=== PATIENT | female | born 1965 | race Caucasian/White ===

== ENCOUNTER 2018-07-12 14:36 | Emergency (ER) | payer BC, OTHER ==
[2018-07-12] MEDS ORDERED: Ondansetron 4 MG/2 ML SDV IVPUSH ONE (15:23)
[2018-07-12] MEDS ORDERED: Sodium Chloride 0.9% 10 ML Syringe FLUSH PRN (15:23)
[2018-07-12] MEDS ORDERED: Alum Hydrox/Mag Hydrox/Simeth 30 ML, Lidocaine 2% 15 ML PO ONE ×2 (15:23)
--- NOTE | 2018-07-12 15:29 | EDM.PDOC ---
ED HPI GENERAL MEDICAL PROBLEM - General Chief Complaint: Chest Pain Stated Complaint: ABD PAIN/CHEST PAIN Time Seen by Provider: 07/12/18 15:07 Source of Information: Reports: Patient History Limitations: Reports: No Limitations - History of Present Illness INITIAL COMMENTS - FREE TEXT/NARRATIVE: Patient is a 52-year-old female with a history of GERD who states for the last week or so symptoms have been on and off more frequent than normal. As of today the symptoms have been constant worsen with eating and drinking. Pain is localized to epigastric region consistent with previous episodes. She is taking Nexium 40 mg every day with no other GI meds. She has stopped drinking caffeine. She has refrained from any spicy foods or chocolates. She does have history of hiatal hernia and states with laying flat the GERD does relief. Pain is localized rated a 6 out of 10 described as sharp in nature. She denies any dark tarry stools or bloody stools. She has no history of upper GI bleed. Denies any fever. She is mildly nauseated with no emesis. No history of pancreatitis. Denies any dysuria. Last bowel movement was is a.m. soft with no straining required. She's had a EGD and colonoscopy in the past 2012 with no concerning findings. Her gallbladder is removed. She denies any alcohol use and does not smoke. She has no history of coronary disease, hypertension, diabetes, hypercholesteremia. She states her mom was diagnosed with heart disease at 55 required stent placement. She does have a history of hypothyroidism and is currently on no medications since she does not tolerate them well. 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: nexium Chest Pain Score (Numeric/FACES): 6 - Related Data Allergies Allergy/AdvReac Type Severity Reaction Status Date / Time codeine Allergy Syncope Verified 07/12/18 14:49 Sulfa (Sulfonamide Allergy Rash Verified 07/12/18 14:49 Antibiotics) Home Meds: Home Meds Biotin 1,000 mcg PO DAILY 07/12/18 [History] Cholecalciferol (Vitamin D3) [Vitamin D] 5,000 unit PO DAILY 07/12/18 [History] Chromium Picolinate 600 mcg PO DAILY 07/12/18 [History] Docusate Sodium [Colace] 100 mg PO DAILY 07/12/18 [History] Esomeprazole [NexIUM] 40 mg PO DAILY 07/12/18 [History] Fluticasone Propionate [Flonase] 16 gm NS DAILY 07/12/18 [History] Fluticasone/Salmeterol [Advair 500-50] 1 puff INH DAILY 07/12/18 [History] Sucralfate [Carafate] 1 gm PO QID #28 tablet 07/12/18 [Rx] Zafirlukast [Accolate] 20 mg PO DAILY 07/12/18 [History] Past Medical History HEENT History: Reports: Impaired Vision Other HEENT History: wears corrective lenses Gastrointestinal History: Reports: GERD 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 ED EXAM, GI/ABD - Physical Exam Exam: See Below Exam Limited By: No Limitations General Appearance: Alert, WD/WN, No Apparent Distress Ears: Hearing Grossly Normal Nose: Normal Inspection Throat/Mouth: Normal Voice, No Airway Compromise Head: Atraumatic, Normocephalic Neck: Normal Inspection, Supple Respiratory/Chest: No Respiratory Distress, Lungs Clear, Normal Breath Sounds, No Accessory Muscle Use, Chest Non-Tender Cardiovascular: Normal Peripheral Pulses, Regular Rate, Rhythm, No Murmur GI/Abdominal Exam: Normal Bowel Sounds, Soft, No Organomegaly, No Distention, Tender (epigastric region/luq) Back Exam: Normal Inspection. No: CVA Tenderness (L), CVA Tenderness (R) Extremities: Normal Inspection, Non-Tender, No Pedal Edema, Normal Capillary Refill Neurological: Alert, Oriented, CN II-XII Intact, Normal Cognition Psychiatric: Normal Affect, Normal Mood Skin Exam: Warm, Dry, Intact, Normal Color, No Rash Course - Vital Signs Last Recorded V/S: Last Vital Signs Temp 97.9 F 07/12/18 14:45 Pulse 98 07/12/18 14:45 Resp 18 07/12/18 14:45 BP 114/82 07/12/18 14:45 Pulse Ox 99 07/12/18 14:45 - Orders/Labs/Meds Orders: Active Orders 24 hr Category Date Time Status Peripheral IV Care [RC] . DIRECTED Care 07/12/18 15:23 Active CULTURE URINE [RM] Stat Lab 07/12/18 15:35 Results Peripheral IV Insertion Adult [OM.PC] Routine Oth 07/12/18 15:23 Ordered Labs: Laboratory Tests 07/12/18 07/12/18 07/12/18 Range/Units 15:35 15:45 15:45 WBC 6.38 (3.98-10.04) K/mm3 RBC 5.15 (3.98-5.22) M/mm3 Hgb 14.7 (11.2-15.7) gm/L Hct 43.2 (34.1-44.9) % MCV 83.9 (79.4-94.8) fl MCH 28.5 (25.6-32.2) pg MCHC 34.0 (32.2-35.5) g/dl RDW Std Deviation 40.3 (36.4-46.3) fL Plt Count 255 (182-369) K/mm3 MPV 9.6 (9.4-12.3) fl Neutrophils % (Manual) 88 H (40-60) % Band Neutrophils % 0 (0-10) % Lymphocytes % (Manual) 7 L (20-40) % Atypical Lymphs % 0 % Monocytes % (Manual) 4 (2-10) % Eosinophils % (Manual) 1 (0.7-5.8) % Basophils % (Manual) 0 L (0.1-1.2) Platelet Estimate Adequate RBC Morph Comment Normal PT 10.3 (9.5-12.1) SECONDS INR 0.94 APTT 34 H (24-31) SECONDS Sodium (136-145) mEq/L Potassium (3.5-5.1) mEq/L Chloride (98-107) mEq/L Carbon Dioxide (21-32) mEq/L Anion Gap (5-15) BUN (7-18) mg/dL Creatinine (0.55-1.02) mg/dL Est Cr Clr Drug Dosing mL/min Estimated GFR (MDRD) (>60) mL/min BUN/Creatinine Ratio (14-18) Glucose (74-106) mg/dL Calcium (8.5-10.1) mg/dL Total Bilirubin (0.2-1.0) mg/dL AST (15-37) U/L ALT (14-59) U/L Alkaline Phosphatase (46-116) U/L Troponin I (0.00-0.056) ng/mL C-Reactive Protein (<1.0) mg/dL Total Protein (6.4-8.2) g/dl Albumin (3.4-5.0) g/dl Globulin gm/dL Albumin/Globulin Ratio (1-2) Lipase (73-393) U/L Urine Color Yellow (Yellow) Urine Appearance Clear (Clear) Urine pH 7.0 (5.0-8.0) Ur Specific Monroe 1.025 (1.005-1.030) Urine Protein Trace H (Negative) Urine Glucose (UA) Negative (Negative) Urine Ketones Negative (Negative) Urine Occult Blood Negative (Negative) Urine Nitrite Negative (Negative) Urine Bilirubin Negative (Negative) Urine Urobilinogen 0.2 (0.2-1.0) Ur Leukocyte Esterase Trace H (Negative) Urine RBC 0-5 (0-5) /hpf Urine WBC 5-10 H (0-5) /hpf Ur Epithelial Cells 40-50 H (0-5) /hpf Urine Bacteria Many H (FEW) /hpf Urine Mucus Moderate H (FEW) /hpf Urine Yeast (Budding) Few H (NOT SEEN) 07/12/18 Range/Units 15:45 WBC (3.98-10.04) K/mm3 RBC (3.98-5.22) M/mm3 Hgb (11.2-15.7) gm/L Hct (34.1-44.9) % MCV (79.4-94.8) fl MCH (25.6-32.2) pg MCHC (32.2-35.5) g/dl RDW Std Deviation (36.4-46.3) fL Plt Count (182-369) K/mm3 MPV (9.4-12.3) fl Neutrophils % (Manual) (40-60) % Band Neutrophils % (0-10) % Lymphocytes % (Manual) (20-40) % Atypical Lymphs % % Monocytes % (Manual) (2-10) % Eosinophils % (Manual) (0.7-5.8) % Basophils % (Manual) (0.1-1.2) Platelet Estimate RBC Morph Comment PT (9.5-12.1) SECONDS INR APTT (24-31) SECONDS Sodium 141 (136-145) mEq/L Potassium 3.6 (3.5-5.1) mEq/L Chloride 105 (98-107) mEq/L Carbon Dioxide 26 (21-32) mEq/L Anion Gap 13.6 (5-15) BUN 19 H (7-18) mg/dL Creatinine 1.1 H (0.55-1.02) mg/dL Est Cr Clr Drug Dosing 46.17 mL/min Estimated GFR (MDRD) 53 (>60) mL/min BUN/Creatinine Ratio 17.3 (14-18) Glucose 115 H (74-106) mg/dL Calcium 8.9 (8.5-10.1) mg/dL Total Bilirubin 0.4 (0.2-1.0) mg/dL AST 33 (15-37) U/L ALT 38 (14-59) U/L Alkaline Phosphatase 95 (46-116) U/L Troponin I < 0.017 (0.00-0.056) ng/mL C-Reactive Protein 0.6 (<1.0) mg/dL Total Protein 7.9 (6.4-8.2) g/dl Albumin 3.7 (3.4-5.0) g/dl Globulin 4.2 gm/dL Albumin/Globulin Ratio 0.9 L (1-2) Lipase 304 (73-393) U/L Urine Color (Yellow) Urine Appearance (Clear) Urine pH (5.0-8.0) Ur Specific Monroe (1.005-1.030) Urine Protein (Negative) Urine Glucose (UA) (Negative) Urine Ketones (Negative) Urine Occult Blood (Negative) Urine Nitrite (Negative) Urine Bilirubin (Negative) Urine Urobilinogen (0.2-1.0) Ur Leukocyte Esterase (Negative) Urine RBC (0-5) /hpf Urine WBC (0-5) /hpf Ur Epithelial Cells (0-5) /hpf Urine Bacteria (FEW) /hpf Urine Mucus (FEW) /hpf Urine Yeast (Budding) (NOT SEEN) Meds: Medications Discontinued Medications Generic Name Dose Route Start Last Admin Trade Name Freq PRN Reason Stop Dose Admin Al Hydroxide/Mg Hydroxide 30 0 ml 07/12/18 15:23 07/12/18 15:53 ml/ Lidocaine HCl 15 ml PO 07/12/18 15:24 45 ml ONETIME ONE Administration Sodium Chloride 1,000 mls @ 150 mls/hr 07/12/18 15:30 07/12/18 15:53 Normal Saline IV 150 mls/hr ASDIRECTED SONIA Administration Ondansetron HCl 4 mg 07/12/18 15:23 07/12/18 15:54 Zofran IVPUSH 07/12/18 15:24 4 mg ONETIME ONE Administration Sodium Chloride 10 ml 07/12/18 15:23 07/12/18 16:09 Saline Flush FLUSH 10 ml ASDIRECTED PRN Administration Keep Vein Open - Re-Assessments/Exams Free Text/Narrative Re-Assessment/Exam: Differential diagnosis: Gastritis, PUD, pancreatitis, or cardiac in origin. IV established with normal saline and Zofran 4 mg IVP. GI cocktail order. She is early on Nexium 40 mg every day. Initial labs and studies include CBC, chem 14, CRP, lipase, coags, troponin, UA , chest with abdomen series x-ray. EKG an EKG sinus rhythm at a rate of 98 with normal QTC and TN interval. No acute ST changes noted. Labs reviewed: CBC was essentially normal. CMP indicated BUN 19, creatinine 1.1 , normal sodium and potassium, glucose mildly elevated at 1:15, troponin normal , CRP normal, lipase normal. UA indicated trace protein, leukocyte esterase trace, negative nitrates, urine wbc's 5-10, urine epithelial cells 40-50, urine bacteria many, moderate mucus, few yeast. Urine culture obtained. Appears contaminated. Reassessment, patient states the symptoms have drastically improved with the GI cocktail. Vital signs are stable. I suspect cause of her current complaint is related to gastritis with possible PUD. Will discharge patient home with prescription for Carafate. Instructions to continue with the Nexium as prescribed and May utilize Zantac at night prior to bedtime. She'll require follow-up with PCP and possible EGD/colonoscopy. Return precautions discussed with patient. She had no further questions or concerns. Departure - Departure Time of Disposition: 17:45 Disposition: Home, Self-Care 01 Condition: Good Clinical Impression: Gastritis Qualifiers: Gastritis type: unspecified gastritis Chronicity: acute Gastritis bleeding: without bleeding Qualified Code(s): K29.00 - Acute gastritis without bleeding - Discharge Information Prescriptions: Sucralfate [Carafate] 1 gm PO QID #28 tablet Instructions: Gastritis, Adult, [id number] Referrals: Donald York MD [Primary Care Provider] - Forms: ED Department Discharge Additional Instructions: I suspect cause of gi discomfort is gastritis which is inflammation of the stomach secondary to acid reflux. I suggest continued taking Nexium as prescribed 40 mg every a.m., Carafate 1 g 4 times a day, and Zantac 150 at night prior to bed. Continue eating small meals throughout the course today. Refrain from caffeinated beverages, chocolates, spicy foods, and any other foods or beverages at cause aggravation. Do not eat or drink within 4 hours ago in the bed. See her PCP in the next week for reevaluation. Repeat EGD may be of benefit as well testing for H. pylori. Please return back to the ED if you develop any new or worsening symptoms. - My Orders Last 24 Hours: My Active Orders 07/12/18 15:23 Peripheral IV Care [RC] . DIRECTED Peripheral IV Insertion Adult [OM.PC] Routine 07/12/18 15:35 CULTURE URINE [RM] Stat - Assessment/Plan Last 24 Hours: My Active Orders 07/12/18 15:23 Peripheral IV Care [RC] . DIRECTED Peripheral IV Insertion Adult [OM.PC] Routine 07/12/18 15:35 CULTURE URINE [RM] Stat
[2018-07-12] MEDS ORDERED: Sodium Chloride 0.9% 1,000 ML IV SCH (15:30)
--- NOTE | 2018-07-13 08:24 | CR ---
Abdominal series: Supine and upright views of the abdomen were obtained as well as upright view of the chest. Comparison: No prior chest x-ray or abdominal x-ray, prior chest CT of 08/31/11 is available. Findings: Slight atelectasis is noted within the left base. Lungs otherwise are clear. Heart size and mediastinum are normal. No free air is seen. Surgical clips are seen from prior cholecystectomy. Small calcification is noted within the right pelvis compatible with phlebolith. Bowel gas pattern appears normal. Impression: 1. Incidental findings. Nothing acute is seen. Diagnostic code #2
== END 2018-07-12 17:58 | disposition home or self-care (01) ==
LOC: JD.ED 14:36
DX: K29.00 Acute gastritis without bleeding (principal); K21.9 Gastro-esophageal reflux disease without esophagitis; Z79.891 Long term (current) use of opiate analgesic; Z79.899 Other long term (current) drug therapy; Z88.2 Allergy status to sulfonamides; Z98.890 Other specified postprocedural states
CPT/HCPCS: 36415; 74022; 80053; 81001; 83690; 84484; 85007; 85027; 85610; 85730; 86140; 87086; 96361; 96374; 99284; A9270; J2405; J7040

== ENCOUNTER 2020-10-23 12:49 | Emergency (ER) | payer BC ==
--- NOTE | 2020-10-23 13:37 | EDM.PDOC ---
ED HPI GENERAL MEDICAL PROBLEM - General Chief Complaint: Respiratory Problem Stated Complaint: COUGH AND CONGESTION Time Seen by Provider: 10/23/20 12:54 Source of Information: Reports: Patient, Provider History Limitations: Reports: No Limitations - History of Present Illness INITIAL COMMENTS - FREE TEXT/NARRATIVE: 55-year-old female presents the emergency department today with complaints of shortness of breath and a history of Covid diagnosis on October 10, 2020. The patient presented to [facility] this morning with complaints of shortness of breath as she felt it was due to asthma exacerbation and requested a prednisone shot. Dr. Esquivel, the provider who saw her, did do a work-up that included a chest x-ray, CBC and D-dimer. Dr. Esquivel did phone me and stated that chest x-ray was consistent with atypical pneumonia due to Covid. CBC was essentially normal except for a white count that was slightly low at 3.8 and her D-dimer came back positive at 1.1. Dr. Esquivel felt like the patient needed further work-up and a CTA of the chest to rule out a PE. The patient was cleared from the [place] [facility] 2 days ago to be out in [facility]. She states that yesterday she started having a heavy chest and cough that worse when she is walking. She denies any fever chills, nausea, vomiting or diarrhea. She says that her appetite is back as well as her sense of taste and smell. She states her cough today has become more productive of a clear to simmons sputum. - Related Data Allergies Allergy/AdvReac Type Severity Reaction Status Date / Time codeine Allergy Syncope Verified 10/23/20 13:09 Sulfa (Sulfonamide Allergy Rash Verified 10/23/20 13:09 Antibiotics) Home Meds: Home Meds Cholecalciferol (Vitamin D3) [Vitamin D] 5,000 unit PO DAILY 07/12/18 [History] Esomeprazole [NexIUM] 40 mg PO DAILY 07/12/18 [History] Fluticasone Propionate [Flonase] 16 gm NS DAILY 07/12/18 [History] Fluticasone/Salmeterol [Advair 500-50] 1 puff INH DAILY 07/12/18 [History] Zafirlukast [Accolate] 20 mg PO DAILY 07/12/18 [History] Albuterol Sulfate 2.5 mg IH Q4H PRN #15 ml 10/23/20 [Rx] Levothyroxine [Synthroid] 100 mcg PO ACBREAKFAST 10/23/20 [History] Past Medical History HEENT History: Reports: Impaired Vision Other HEENT History: wears corrective lenses Respiratory History: Reports: Asthma Gastrointestinal History: Reports: GERD 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: - Infectious Disease History Infectious Disease History: Reports: Influenza, Novel Coronavirus - Past Surgical History HEENT Surgical History: Reports: Other (See Below) Other HEENT Surgeries/Procedures: polyps removed from nose Female Surgical History: Reports: Section Other Female Surgeries/Procedures: x2 Social & Family History - Tobacco Use Tobacco Use Status *Q: Never Tobacco User Second Hand Smoke Exposure: No - Caffeine Use Caffeine Use: Reports: Tea - Recreational Drug Use Recreational Drug Use: No ED ROS GENERAL - Review of Systems Review Of Systems: Comprehensive ROS is negative, except as noted in HPI. ED EXAM, GENERAL - Physical Exam Exam: See Below Exam Limited By: No Limitations General Appearance: Alert, WD/WN, No Apparent Distress Ears: Normal External Exam, Hearing Grossly Normal Nose: Normal Inspection Throat/Mouth: Normal Inspection, Normal Lips, Normal Voice, No Airway Compromise Head: Atraumatic Neck: Normal Inspection, Supple Respiratory/Chest: No Respiratory Distress, No Accessory Muscle Use, Chest Non- Tender, Crackles (left upper lobe). No: Lungs Clear, Normal Breath Sounds Cardiovascular: Normal Peripheral Pulses, Regular Rate, Rhythm, No Edema, No Murmur Peripheral Pulses: 2+: Radial (L), Radial (R) GI/Abdominal: Normal Bowel Sounds, Soft, Non-Tender, No Distention (Female) Exam: Deferred Rectal (Female) Exam: Deferred Back Exam: Normal Inspection, Full Range of Motion Extremities: Normal Inspection Neurological: Alert, Oriented, Normal Cognition Psychiatric: Normal Affect, Normal Mood Skin Exam: Warm, Dry, Intact, Normal Color, No Rash Lymphatic: No Adenopathy #1 Interpretation EKG Date: 10/23/20 Time: 13:39 Rhythm: NSR Rate (Beats/Min): 86 Walker: Normal P-Wave: Present QRS: Normal ST-T: Normal QT: Normal Comparison: NA - No Prior EKG EKG Interpretation Comments: Per Dr. Smith interpretation: Sinus rhythm; low voltage, precordial leads Course - Vital Signs Text/Narrative:: 55-year-old [facility] for further evaluation of shortness of breath. Patient has a history of Covid diagnosis on 10 October. She was cleared from the [facility] 2 days ago. She states that she has noted increased activity and chest pressure over the past 2 days when ambulating even short distances. She was seen at [facility] this morning as she felt she was having an exacerbation of her asthma and was requesting to have a steroid shot. She states that she is unable to take oral prednisone due to it exacerbating her GERD. Lab work-up at [facility] included a WBC of 3.8, hemoglobin 13.2, hematocrit 38.3, platelet count was 251, and D-dimer was 1.1. Dr. Esquivel felt that this patient needed further work-up including a CTA to rule out PE. I have ordered labs on this patient. I have also ordered an EKG as patient does state more chest pressure over the course of the past 2 days. I am awaiting her kidney function and then will likely move forward with ordering a CTA to rule out PE. Last Recorded V/S: Last Vital Signs Temp 98.6 F 10/23/20 12:55 Pulse 94 10/23/20 12:55 Resp 12 10/23/20 12:55 BP 123/83 10/23/20 12:55 Pulse Ox 98 10/23/20 12:55 - Orders/Labs/Meds Orders: Active Orders 24 hr Category Date Time Status EKG Documentation Completion [RC] STAT Care 10/23/20 13:28 Active CTA Chest W WO Contrast [Ang Chest] [CT] Stat Exams 10/23/20 14:28 Taken Sodium Chloride 0.9% [Normal Saline] 100 ml Med 10/23/20 15:00 Active IV ASDIRECTED Sodium Chloride 0.9% [Saline Flush] Med 10/23/20 14:55 Active 10 ml FLUSH ONETIME PRN Medication Orders Sodium Chloride (Normal Saline) 100 mls @ 60 mls/hr IV ASDIRECTED SONIA Last Admin: 10/23/20 15:28 Dose: 60 mls/hr Documented by: [email or web address] Sodium Chloride (Sodium Chloride 0.9% 10 Ml Syringe) 10 ml FLUSH ONETIME PRN PRN Reason: Keep Vein Open Last Admin: 10/23/20 15:28 Dose: 10 ml Documented by: [id number] Labs: Laboratory Tests 10/23/20 Range/Units 13:35 Sodium 142 (136-145) mEq/L Potassium 3.3 L (3.5-5.1) mEq/L Chloride 106 (98-107) mEq/L Carbon Dioxide 27 (21-32) mEq/L Anion Gap 12.3 (5-15) BUN 15 (7-18) mg/dL Creatinine 1.0 (0.55-1.02) mg/dL Est Cr Clr Drug Dosing 49.09 mL/min Estimated GFR (MDRD) 58 (>60) mL/min BUN/Creatinine Ratio 15.0 (14-18) Glucose 133 H (74-106) mg/dL Calcium 8.3 L (8.5-10.1) mg/dL Magnesium 1.5 L (1.8-2.4) mg/dl Total Bilirubin 0.7 (0.2-1.0) mg/dL AST 105 H (15-37) U/L ALT 148 H (14-59) U/L Alkaline Phosphatase 133 H (46-116) U/L Troponin I < 0.017 (0.00-0.056) ng/mL C-Reactive Protein 3.0 H* (<1.0) mg/dL Total Protein 7.5 (6.4-8.2) g/dl Albumin 3.1 L (3.4-5.0) g/dl Globulin 4.4 gm/dL Albumin/Globulin Ratio 0.7 L (1-2) Meds: Medications Generic Name Dose Route Start Last Admin Trade Name Freq PRN Reason Stop Dose Admin Sodium Chloride 100 mls @ 60 mls/hr 10/23/20 15:00 10/23/20 15:28 Normal Saline IV 60 mls/hr ASDIRECTED SONIA Administration Sodium Chloride 10 ml 10/23/20 14:55 10/23/20 15:28 Sodium Chloride 0.9% 10 Ml Syringe FLUSH 10 ml ONETIME PRN Administration Keep Vein Open Discontinued Medications Generic Name Dose Route Start Last Admin Trade Name Freq PRN Reason Stop Dose Admin Iopamidol 100 ml 10/23/20 14:55 10/23/20 15:28 Iopamidol 755 Mg/Ml 100 Ml Bottle IVPUSH 10/23/20 14:56 100 ml ONETIME ONE Administration Magnesium Oxide 400 mg 10/23/20 14:32 10/23/20 15:01 Magnesium Oxide 400 Mg Tab PO 10/23/20 14:33 400 mg ONETIME ONE Administration Potassium Chloride 40 meq 10/23/20 14:30 10/23/20 15:01 Potassium Chloride 20 Meq Tab.Er PO 10/23/20 14:31 40 meq ONETIME ONE Administration - Radiology Interpretation Free Text/Narrative:: Chest xray films were pushed from [facility] and reviewed by myself and Dr. Smith: 2 view of the chest was essentially unremarkable except for a small area of atelectasis noted in the right lower lobe. - Re-Assessments/Exams Free Text/Narrative Re-Assessment/Exam: 10/23/20 14:32 Chemistry reveals a potassium of 3.3, anion gap 12.3, BUN 15, creatinine 1.0, GFR 58, glucose 133, calcium 8.3, magnesium 1.5, AST 105, ALT 148, alk phos 133, troponin less than 0.017, C-reactive protein 3.0, I have ordered for the patient to receive 40 mEq of potassium p.o. and magnesium oral supplementation as both these levels are low. I have also ordered for the patient to have a CTA of the chest to rule out a PE. 10/23/20 16:19 [facility] radiologist impression CTA of the chest with contrast: 1. Patchy bilateral infiltrates with a pattern typical for COVID-19 pneumonia. 2. No pulmonary embolism identified. Discussed the case with Dr. Smith and he recommends that I give the patient 8mg Dexamethasone IV as she is not able to take or prednisone. She is not afebrile and her O2 saturations are 98% on room air. Pt will then be discharged to home with recommendations that she follow up with Dr. Rush later this week. Departure - Departure Time of Disposition: 16:23 Disposition: Home, Self-Care 01 Condition: Good Clinical Impression: Pneumonia due to COVID-19 virus - Discharge Information Prescriptions: Albuterol Sulfate 2.5 mg IH Q4H PRN #15 ml PRN Reason: Wheezing Referrals: Donald York MD [Primary Care Provider] - Forms: ED Department Discharge Additional Instructions: You were seen in the emergency department today after a sent from [facility] to evaluate your shortness of breath and rule out a pulmonary embolism. Labs were completed which did show your kidney function was good. However, your potassium and magnesium levels slightly low so we did give you oral supplem entation. You do not have a blood clot in your lungs. We gave you a dose of IV steroid prior to your discharge to home. Strongly recommend that you follow-up with Dr. Rush later in the week for reevaluation of your shortness of breath. Should your condition worsen or change do not hesitate returning to the emergency department. Sepsis Event Note (ED) - Evaluation Sepsis Screening Result: No Definite Risk - Focused Exam Vital Signs: Vital Signs Temp Pulse Resp BP Pulse Ox 10/23/20 12:55 98.6 F 94 12 123/83 98 - My Orders Last 24 Hours: My Active Orders 10/23/20 13:28 EKG Documentation Completion [RC] STAT 10/23/20 14:28 CTA Chest W WO Contrast [Ang Chest] [CT] Stat 10/23/20 14:55 Sodium Chloride 0.9% [Saline Flush] 10 ml FLUSH ONETIME PRN 10/23/20 15:00 Sodium Chloride 0.9% [Normal Saline] 100 ml IV ASDIRECTED - Assessment/Plan Last 24 Hours: My Active Orders 10/23/20 13:28 EKG Documentation Completion [RC] STAT 10/23/20 14:28 CTA Chest W WO Contrast [Ang Chest] [CT] Stat 10/23/20 14:55 Sodium Chloride 0.9% [Saline Flush] 10 ml FLUSH ONETIME PRN 10/23/20 15:00 Sodium Chloride 0.9% [Normal Saline] 100 ml IV ASDIRECTED
[2020-10-23] MEDS ORDERED: Potassium Chloride 20 MEQ Tab.ER PO ONE (14:30)
[2020-10-23] MEDS ORDERED: Magnesium Oxide 400 MG Tab PO ONE (14:32)
[2020-10-23] MEDS ORDERED: Iopamidol 755 Mg/ML 100 ML Bottle IVPUSH ONE (14:55)
[2020-10-23] MEDS ORDERED: Sodium Chloride 0.9% 10 ML Syringe FLUSH PRN (14:55)
[2020-10-23] MEDS ORDERED: Sodium Chloride 0.9% 100 ML IV SCH (15:00)
[2020-10-23] MEDS ORDERED: Dexamethasone 10 MG/ML SDV IVPUSH ONE (16:22)
--- NOTE | 2020-10-24 07:52 | CT ---
CT chest Technique: Multiple axial sections were obtained through the chest. Intravenous contrast was utilized. Study has been performed as a pulmonary angiogram protocol. Comparison: Prior CT chest study of 08/31/11. Findings: Pulmonary arteries are well opacified. No filling defects are seen to indicate pulmonary embolism. Thoracic aorta shows no aneurysm. No mediastinal or hilar adenopathy is seen. No pericardial thickening is noted. Lung window settings were reviewed. Scattered parenchymal densities are seen throughout both lungs. Findings have the appearance of diffuse Covid pneumonia. No pleural effusions or pneumothorax are seen. Bone window settings were reviewed which show no acute osseous finding. Visualized upper abdominal structures show a small low density lesion within the top of the liver which measures about 7 mm. This is not definitely appreciated on prior CT study but most likely represents a cyst. Other portions of the visualized upper abdominal structures show no discrete abnormality. Incidental note of surgical clips from prior cholecystectomy. Impression: 1. No findings of pulmonary embolism. 2. Patchy areas of increased density on both sides of the chest most likely representing Covid pneumonia. 3. Small cyst within the upper right lobe of the liver. Diagnostic code #3 I agree with preliminary report from [facility], finalized on 10/23/20, 11:24 AM CDT, code 1
== END 2020-10-23 16:36 | disposition home or self-care (01) ==
LOC: JD.ED 12:49
DX: U07.1 COVID-19 (principal); J12.82 Pneumonia due to coronavirus disease 2019; J45.909 Unspecified asthma, uncomplicated; K21.9 Gastro-esophageal reflux disease without esophagitis; Z79.899 Other long term (current) drug therapy; Z88.5 Allergy status to narcotic agent; Z88.2 Allergy status to sulfonamides
CPT/HCPCS: 36415; 71275; 80053; 83735; 84484; 86140; 93005; 96374; 99285; A9270; J1100; Q9967; 93010; 99284